=== PATIENT | male | born 1985 | race African-American/Black ===

== ENCOUNTER 2018-02-20 20:49 | Emergency (ER) | payer OTHER ==
[~2018-02-20] VITALS: Ht 182.9 cm; Wt 95.7 kg
[2018-02-20 20:53] VITALS: Ht 182.9 cm; Wt 95.7 kg
[2018-02-20 21:24] LABS: BASOPHIL % 0.4 % (0-2); PLATELET COUNT 312 x10^3mcL (130-400); RED CELL DISTRIBUTION WIDTH 12.5 % (11.5-14.5)
[2018-02-20 23:22] VITALS: BP 134/83
== END 2018-02-20 23:22 | disposition home or self-care (01) ==
LOC: ED 20:49
PROVIDERS: Emergency Medicine
DX: N64.89 Other specified disorders of breast (principal); Z48.01 Encounter for change or removal of surgical wound dressing
CPT/HCPCS: J2001; J2270; J2405